=== PATIENT | female | born 1985 | race Caucasian/White ===

== ENCOUNTER 2016-11-16 08:31 | Day surgery (SDC) | payer OTHER ==
[~2016-11-16] VITALS: Ht 167.6 cm; Wt 50.3 kg
--- NOTE | ~2016-11-16 | OP ---
Record Of Operation [facility] [address] [place]. [address] NAME: VICKI AYALA : 87 [place]US : [place] [facility] [place] PAT#: [id number] AGE: 31 ADM/REG DATE : 11/16/16 MR#: [id number] REPORT SERV DATE: 11/16/16 DICTATED BY: DANIEL STEVENS DATE: 11/16/16 REPORT STATUS : Draft TRANSCRIBED BY: MODL DATE: 11/16/16 DATE OF PROCEDURE: 11/16/2016 PREOPERATIVE DIAGNOSES: 1. Reducible umbilical hernia. 2. Nicotine dependence. POSTOPERATIVE DIAGNOSES: 1. Reducible umbilical hernia. 2. Nicotine dependence. PROCEDURE: Open reducible umbilical hernia repair with mesh. ANESTHESIA: General. BUSINESS PLANNING ANALYST: Isabella. COMPLICATIONS: None. DRAINS: None. ESTIMATED BLOOD LOSS: 5 mL. FINDINGS: The patient was noted to have a reducible umbilical hernia approximately 10 mm. OPERATIVE TECHNIQUE: The patient was brought to the operating room and placed on the table in supine position. She had preoperative IV antibiotics. She had sequential hose in place. She voided prior to the procedure. She underwent general endotracheal anesthesia and was prepped and draped in sterile fashion. A time-out was completed. Local anesthesia was instilled to the periumbilical skin. A 15 blade knife was used to make an infraumbilical incision from 3 o'clock to 7 o'clock. The incision was carried down to the anterior fascia, and an umbilical hernia was then encircled and then dissected using electrocautery off the infraumbilical skin, which was identified and preserved. The hernia sac was then excised with some preperitoneal fat. It was sent to Pathology. A finger was then inserted into the defect, which was approximately 10 or 11 mm and a finger was swept in the abdomen. There was no evidence of any other adhesions or abnormalities. The Proceed ventral patch was then placed into the abdomen under direct visualization and with the straps elevated to the anterior wall under direct visualization. A finger was swept and a Zee circumferentially around the mass to ensure that it was fully opened and there were no unwanted bowel between the abdominal wall and mesh. It was a 6.4 cm round mesh. The straps were then secured to the fascial edges with interrupted Prolene sutures. The primary defect was then closed without tension using a running 0 looped PDS suture. Subcutaneous tissues were then thoroughly irrigated. The subcutaneous tissues were then reapproximated using interrupted 3 0 Vicryl suture followed by running subcuticular Monocryl suture. Dermabond was applied to the skin and she was extubated and taken to the recovery room in stable condition. All sponge and needle counts were reported correct. Record Of Operation [address] [place]. [address] NAME: VICKI AYALA : 87 STATUS : [place] [facility] [place] PAT#: [id number] AGE: 31 ADM/REG DATE : 11/16/16 MR#: [id number] REPORT SERV DATE: 11/16/16 DICTATED BY: DANIEL STEVENS DATE: 11/16/16 REPORT STATUS : Draft TRANSCRIBED BY: MICHAEL DATE: 11/16/16 /MICHAEL Daniel Stevens M.D. / [id number] CC: Enedina Duque LUIS ALBERTO
[~2016-11-16 08:31] MED LIST: KENCR.1 TOP
== END 2016-11-16 14:25 | disposition home or self-care (01) ==
LOC: SDC 08:31
PROVIDERS: Surgery
PROC: 0WUF0JZ Supplement Abdominal Wall with Synthetic Substitute, Open Approach (ICD-10-PCS; principal; 2016-11-16 10:15)
DX: K42.9 Umbilical hernia without obstruction or gangrene (principal); F32.9 Major depressive disorder, single episode, unspecified; F17.210 Nicotine dependence, cigarettes, uncomplicated; Z97.5 Presence of (intrauterine) contraceptive device; Z79.899 Other long term (current) drug therapy; Z98.890 Other specified postprocedural states
CPT/HCPCS: 84703; 87641; 88302; A9270-GY; J0690; J1170; J1885; J2175; J2250; J2405; J2710; J3010